=== PATIENT | male | born 1985 | race Caucasian/White ===

== ENCOUNTER 2016-03-16 12:11 | Emergency (ER) | payer BC ==
[2016-03-16 13:18] VITALS: BP 129/82
--- NOTE | 2016-03-16 14:05 | UC ---
Lower Extremity/Ankle HPI - HPI Summary HPI Summary: The patient comes in today for: 1. Right ankle pain Onset: This morning. Palliative/provocative: Walking, inversion Quality: Ache, sharp Region: right ankle Severity: sitting 7/10, walking 10/10 Time: Constant. Associated symptoms: Event: He went out drinking and woke up this morning with a painful, laterally swollen right ankle. He does not remember what he did to his ankle. Previous injury: He did not injury it before. Home Rx: None. 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 Endocrine History Of: Denies: Diabetes, Thyroid Disease, Hyperthyroidism, Hypothyroidism, Dyslipidemia Cardiovascular History Of: Denies: Cardiac Disorders, Hypertension, Pacemaker/ICD, Myocardial Infarction , Congestive Heart Failure, Atrial Fibrillation, Deep Vein Thrombosis, Bleeding Disorders Respiratory History Of: Reports: Asthma - request refill of his resque inhaler- has appt with PMD 05/05 Denies: COPD, Bronchitis, Pneumonia, Pulmonary Embolism GI/ History Of: Denies: Gastroesophageal Reflux, Ulcer, Gastrointestinal Bleed, Gall Bladder Disease, Kidney Stones, Diverticulitis, Renal Disease, Urosepsis Neurological History Of: Denies: TIA, CVA, Dementia, Seizures, Migraine Psychological History Of: Denies: Anxiety, Depression, Bipolar Disorder, Schizophrenia, Post Traumatic Stress Disorder Cancer History Of: Denies: Lung Cancer, Colorectal Cancer, Breast Cancer, Prostate Cancer, Cervical Cancer Other History Of: Negative For: HIV, Hepatitis B, Hepatitis C, Anticoagulant Therapy - Surgical History Surgical History: None - Family History Known Family History: Positive: Cardiac Disease, Hypertension - Social History Occupation: Unemployed Alcohol Use: Weekly Alcohol Amount: a few beers daily Substance Use Type: None Smoking Status (MU): Never Smoked Tobacco Review of Systems Constitutional: Negative Skin: Negative Eyes: Negative ENT: Negative Respiratory: Negative Cardiovascular: Negative Gastrointestinal: Negative Genitourinary: Negative All Other Systems Reviewed And Are Negative: Yes Physical Exam Triage Information Reviewed: Yes Appearance: Well-Appearing, No Pain Distress, Well-Nourished Vital Signs: Initial Vital Signs Temp 98.6 F 03/16/16 13:13 Pulse 77 03/16/16 13:13 Resp 16 03/16/16 13:13 BP 129/82 03/16/16 13:13 Pulse Ox 100 03/16/16 13:13 Vital Signs Reviewed: Yes Eyes: Positive: Conjunctiva Clear. Negative: Discharge ENT: Positive: Hearing grossly normal. Negative: Pharyngeal erythema, Nasal congestion, Nasal drainage, TM bulging, TM dull, TM red, Tonsillar swelling, Tonsillar exudate Dental: Negative: Gross Decay/Caries @, Dental Fracture @ Neck: Positive: Supple, Nontender, No Lymphadenopathy. Negative: Nuchal Rigidity Respiratory: Positive: Chest non-tender, Lungs clear, No respiratory distress, No accessory muscle use. Negative: Crackles, Wheezing Cardiovascular: Positive: RRR, No Murmur Abdomen Description: Positive: Nontender, No Organomegaly, Soft. Negative: Distended, Guarding, Peritoneal Signs Musculoskeletal: Positive: Other: - Right ankle: There is swelling around the lateral malleolus on the right. There is tenderness at that area. There is decreased range of motion. Dove test is normal and there is no depression along the Achilles tendon with slight dorsi-flexion Neurological: Positive: Alert, Muscle Tone Normal Psychological: Positive: Age Appropriate Behavior, Consolable Skin: Negative: rashes, breakdown Diagnostics - Laboratory Diagnostic Studies Completed/Ordered: Radiologist read: No fracture or dislocation, but positive soft tissue swelling. - Radiology No standard instances Xray Interpretation: Positive (See Comments) Lower Extremity Course/Dx - Differential Dx/Diagnosis Differential Diagnosis/HQI/PQRI: Cellulitis, Gout, Sprain Provider Diagnoses: right ankle sprain. Discharge - Discharge Plan Condition: Stable Disposition: HOME Patient Education Materials: RICE Therapy (ED), Ankle Sprain (ED) Referrals: Cristine Bishop [Primary Care Provider] - 1 Week (Please see your primary care provider in about a week to see how well you are doing. If you get worse, please be seen sooner.)
--- NOTE | 2016-03-16 14:27 | RAD ---
Indication: Right ankle injury. 3 views of the right ankle demonstrates no fracture or dislocation. Soft tissue swelling is noted laterally. IMPRESSION: No definite fracture is identified with soft tissue swelling. Oblique
== END 2016-03-16 14:48 | disposition home or self-care (01) ==
LOC: UCCORT 12:11
DX: S93.401A Sprain of unspecified ligament of right ankle, initial encounter (principal); X58.XXXA Exposure to other specified factors, initial encounter; Y93.9 Activity, unspecified; Y92.9 Unspecified place or not applicable; Y99.9 Unspecified external cause status; Z88.0 Allergy status to penicillin
CPT/HCPCS: 99213; G0463

== ENCOUNTER 2017-02-07 09:25 | Emergency (ER) | payer BC ==
--- NOTE | 2017-02-07 10:05 | UC ---
General HPI - HPI Summary HPI Summary: 32 yo gentleman c/o last 1-2 weeks cough, congestion. Today + scratchy throat. Works outside a lot, reports that he periodically wheezes, requests refill of inhaler. No recent fever / chills. No sob but chest a little tight. No GI issues reported. No rash. Also c/o "cold sores" to upper lip. Had a sore that closed yesterday but this am, a new sore opened up. 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 Typically takes valcyclovir (500mg daily via 1000mg tab script with tablets broken in 02/21), but script ran out; and has not been able to f/u with PCP. Sores are oral. Has used otc cold sore topical tx including lysine. - History of Current Complaint Chief Complaint: UCRespiratory Stated Complaint: COUGH,ST,COLD SORE Time Seen by Provider: 02/07/17 09:39 Hx Obtained From: Patient - Allergy/Home Medications Allergies/Adverse Reactions: Allergies Allergy/AdvReac Type Severity Reaction Status Date / Time Penicillins Allergy Unknown Verified 02/07/17 09:35 Reaction Details Home Medications: Home Medications Pseudoephedrine TAB* [Sudafed TAB*] 30 mg PO Q6H PRN 02/07/17 [History Confirmed 02/07/17] PMH/Surg Hx/FS Hx/Imm Hx Previously Healthy: Yes Other History Of: Negative For: HIV, Hepatitis B, Hepatitis C, Anticoagulant Therapy - Surgical History Surgical History: None - Family History Known Family History: Positive: Cardiac Disease, Hypertension - Social History Alcohol Use: Occasionally Alcohol Amount: a few beers daily Substance Use Type: None Smoking Status (MU): Never Smoked Tobacco Review of Systems Constitutional: Fatigue Skin: Other - see hpi Eyes: Negative ENT: Sore Throat, Nasal Discharge, Sinus Congestion Respiratory: Cough Cardiovascular: Negative Gastrointestinal: Negative Genitourinary: Negative Motor: Negative Neurovascular: Negative Musculoskeletal: Negative Neurological: Negative Psychological: Negative Is Patient Immunocompromised?: No All Other Systems Reviewed And Are Negative: Yes Physical Exam Triage Information Reviewed: Yes Appearance: Well-Nourished - sitting up, conversing easily and appropriately Vital Signs: Initial Vital Signs Temp 97.8 F 02/07/17 09:36 Pulse 74 02/07/17 09:36 Resp 16 02/07/17 09:36 BP 141/84 02/07/17 09:36 Pulse Ox 99 02/07/17 09:36 Vital Signs Reviewed: Yes Eye Exam: Normal ENT: Positive: Pharyngeal erythema - no sores, uvula midline. Top of roof a little red, no sores. Tongue grossly normal., Nasal congestion, TM dull - TMs dull au, Other - upper lip with sore, c/w HSV -type. Neck: Positive: Supple, Nontender, No Lymphadenopathy Respiratory Exam: Normal Respiratory: Positive: Chest non-tender, Lungs clear, Normal breath sounds, No respiratory distress, No accessory muscle use Cardiovascular Exam: Normal Cardiovascular: Positive: RRR, No Murmur, Pulses Normal, Brisk Capillary Refill Abdominal Exam: Normal Abdomen Description: Positive: Nontender Musculoskeletal Exam: Normal - moves all 4 ext's Neurological Exam: Normal - grossly nonfocal Psychological Exam: Normal - conversing easily and appropriately Skin Exam: Normal - see ent Course/Dx - Course Course Of Treatment: Reviewed s/sx with pt. Considered strep, but doubt. He will f/u accordingly if s/sx worsen. Rx for azithromycin, albuterol. Refill for valcyclovir. Declines work note. Questions as posed answered to the best of my ability. - Differential Dx - Multi-Symptom Provider Diagnoses: HSV cold sore. URI with bronchitis / mild pharyngitis Discharge - Discharge Plan Condition: Stable Disposition: HOME Referrals: Cristine Bishop [Primary Care Provider] -
[2017-02-07 10:14] VITALS: BP 141/84
== END 2017-02-07 10:22 | disposition home or self-care (01) ==
LOC: UCCORT 09:25
DX: B00.1 Herpesviral vesicular dermatitis (principal); J06.9 Acute upper respiratory infection, unspecified; J40 Bronchitis, not specified as acute or chronic; J02.9 Acute pharyngitis, unspecified
CPT/HCPCS: 99212; G0463

== ENCOUNTER 2018-01-06 12:18 | Emergency (ER) | payer BC ==
[2018-01-06 12:39] VITALS: BP 142/80
--- NOTE | 2018-01-06 12:40 | UC ---
UC General HPI - HPI Summary HPI Summary: 1. SHARP PAIN IN R LOW BACK X 2 DAYS WHICH HE AWOKE WITH. NO ACUTE INJURY. HX SPINAL FX IN PAST BUT NO PAIN IN SPINE. PAIN WORSE WHEN SITS UPRIGHT AND RELIEF WITH LYING BACK. NO FEVER, ABDOMINAL PAIN, SADDLE ANESTHESIA, BOWEL/BLADDER DYSFUNCTION OR NUMB/WEAK EXTREMITIES. SELF TX WITH TYLENOL AND NO RELIEF. 2. 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 STATES HX OF EPISODIC PAINS IN L TESTICLE WHICH A UROLOGIST ATTRIBUTED TO THE VEINS. OVER THE PAST MONTH, PT REPORTS HAVING WORSENING PAIN IN HIS L TESTICLE WHICH HE ATTRIBUTED TO THE VARICOSE VEINS. PAIN SEEMS CONSTANT X 1 MONTH. NO HX OF INJURY OR SWELLING. NO URETHRAL BURNING OR DISCHARGE. 3. OCCASIONAL SORENESS TO ARM PITS-NONE NOW. STATES I DON'T GO TO [facility]CT[facility] SO FIGURED HE WOULD MENTION IT HERE. NO SWELLING OR RASH. - History of Current Complaint Stated Complaint: LOWER RIGHT BACK PAIN Time Seen by Provider: 01/06/18 12:32 Hx Obtained From: Patient Associated Signs & Symptoms: Negative: Abdominal Pain, Fever - Allergy/Home Medications Allergies/Adverse Reactions: Allergies Allergy/AdvReac Type Severity Reaction Status Date / Time Penicillins Allergy Unknown Verified 01/06/18 12:31 Reaction Details Home Medications: Home Medications Acetaminophen [Acetaminophen Extra Strength] 1,000 mg PO Q6H PRN 01/06/18 [ History Confirmed 01/06/18] PMH/Surg Hx/FS Hx/Imm Hx - Additional Past Medical History Additional PMH: FX SPINE. L "TESTICLE VARICOSE VEINS" Other History Of: Negative For: HIV, Hepatitis B, Hepatitis C, Anticoagulant Therapy - Surgical History Surgical History: None - Family History Known Family History: Positive: Cardiac Disease, Hypertension - Social History Occupation: Unemployed - [employer] Alcohol Use: Weekly Alcohol Amount: a few beers daily Substance Use Type: None Smoking Status (MU): Never Smoked Tobacco - Immunization History Vaccination Up to Date: Yes Review of Systems All Other Systems Reviewed And Are Negative: Yes Constitutional: Positive: Negative Skin: Positive: Negative Eyes: Positive: Negative ENT: Positive: Negative Respiratory: Positive: Negative Cardiovascular: Positive: Negative Gastrointestinal: Positive: Negative Genitourinary: Negative: Dysuria, Hematuria, Frequency, Urgency, Vaginal/Penile Burning, Vaginal/Penile Itching, Vaginal/Penile Discharge, Vaginal/Penile Pain Motor: Positive: Negative Neurovascular: Positive: Negative Musculoskeletal: Positive: Other: - R LOW BACK PAIN Neurological: Positive: Negative Psychological: Positive: Negative Is Patient Immunocompromised?: No Physical Exam Triage Information Reviewed: Yes Appearance: Well-Appearing Vital Signs Reviewed: Yes Eyes: Positive: Conjunctiva Clear ENT: Positive: Pharynx normal, TMs normal. Negative: Nasal congestion, Nasal drainage Neck: Positive: Supple, Nontender, No Lymphadenopathy, Other: - C-SPINE NON TENDER Respiratory: Positive: Lungs clear, Normal breath sounds Cardiovascular: Positive: RRR, No Murmur Abdomen Description: Positive: Nontender, No Organomegaly, Soft, Other: - NO INGUINAL ADENOPATHY. Negative: CVA Tenderness (R), CVA Tenderness (L), Distended, Guarding Male Genital Exam: Positive: Other - NO INGUINAL ADENOPATHY. INGUINAL CANALS PATENT. CREAMASTERIC REFLEXES INTACT X2. TESTICLES DOWN. R TESTICLE/SCROTUM WITH NO SWELLING OR TENDERNESS. L TESTICLE VERY TENDER IS THE SPERMATIC CORD. ALSO, EXTENSIVE VARICOSE VEINS ON LEFT WHICH ARE TENDER BUT NOT SEVERE THE TESTICLE. Musculoskeletal: Positive: Other: - BACK: NO GROSS DEFORMITY, SWELLING OR DISCOLORTION AND SPINE IS NON TENDER. R PARASPINAL MM IN LUMBAR REGION ARE TENDER AND PAINFUL WITH ACTIVE ROM WHICH IS LIMITED INLUMBAR REGION BY PAIN. 5/ 5 STRENGTH, 2+ REFLEXES AND SENSATION INTACT X4. NO SADDLE ANETHESIA. Neurological: Positive: Alert Psychological: Positive: Age Appropriate Behavior Skin Exam: Normal, Other - AXILLA HAVE NO SWELLING, ERYTHEMA , RASH ADENOPATHY OR TENDERNESS. NO EPITROCLEAR ADENOPATHY. bue HAVE FULL ROM. Skin: Negative: Rashes Diagnostics - Laboratory Diagnostic Studies Completed/Ordered: U/A=PROTEIN, LEUKOCYTES AND NITRITES. A CULTURE IS PENDING. Course/Dx - Course Course Of Treatment: 1. BACK IS C/W MUSCULOSKELETAL PAIN. GIRLFRIEND DRIVING SO TX WITH MOTRIN AND FLEXERIL HERE. NO CONCERN FOR ACUTE ABDOMEN OF CAUDA EQUINA. DO NOT FEEL PYELONEPHRITIS. 2. L TESTICULAR PAIN IS CONCERNING FOR OTHER PATHOLOGY NOT JUST VARICOSE VEINS, INCLUDING ORCHITIS, EPIDIDYMITIS AND LESS LIKELY INTERMITTENT TORSION. HE AGREES TO GO DIRECTLY TO ER FOR EVALUATION. 3. AXILLARY PAIN IS VAGUE AND NO PAIN AT TIME OF EXAM. I THINK BP ILLNESS/VISIT RELATED. PT GIRLFRIEND IS DRIVING HIM DIRECTLY TO THE ER. [facility] ER CALLED PRIOR TO PT DISCHARGE FROM HERE. 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 I ADVIED OF PT'S 3 COMPLAINTS BUT EMERGENT ISSUE IS THE TESTICLE PAIN. I ADVISED OF U/A RESULT WHICH WAS SENT WITH PT WELL AND TX HERE WITH MOTRIN AND FLEXERIL FOR THE BACK PAIN. I ADVISE TESTICLE PAIN NOT C/W VARICOSE VEIN ISSUE AND NEEDS U/S EMERGENTLY. - Differential Dx - Multi-Symptom Provider Diagnoses: L TESTICLE PAIN. R LOW BACK PAIN. AXILLARY PAIN Discharge - Sign-Out/Discharge Documenting (check all that apply): Patient Departure All imaging exams completed and their final reports reviewed: No Studies - Discharge Plan Condition: Stable Disposition: TRANS HIGHER LVL OF CARE FAC Referrals: No Primary Care Phys,NOPCP [Primary Care Provider] - Additional Instructions: LEAVE HERE AND HAVE YOUR GIRLFRIEND DRIVE YOU TO THE [facility] [place] [facility] DISCUSSED. DIAGNOSIS: L TESTICLE PAIN. R LOW BACK PAIN. AXILLARY PAIN - Billing Disposition and Condition Condition: STABLE Disposition: Trans Higher Lvl of Care Fac
[2018-01-06] MEDS ORDERED: Ibuprofen ADULT LIQ* 600 MG/30 ML UDC PO ONE (13:12)
[2018-01-06] MEDS ORDERED: Cyclobenzaprine TAB* 10 MG PO ONE (13:13)
== END 2018-01-06 13:25 | disposition short-term general hospital (02) ==
LOC: UCCORT 12:18
DX: M54.5 Low back pain (principal); N50.812 Left testicular pain; M79.629 Pain in unspecified upper arm; I86.1 Scrotal varices; Z88.0 Allergy status to penicillin
CPT/HCPCS: 81003; 87077; 87086; 87186; 99212; A9270-GY; G0463

== ENCOUNTER 2018-06-08 07:46 | Emergency (ER) | payer BC ==
[2018-06-08 08:18] VITALS: BP 135/78
--- NOTE | 2018-06-08 09:04 | UC ---
Eye Complaint HPI - HPI Summary HPI Summary: Pleasant 33 yo gentleman presents c/o sore, redness, swelling under R eye, just over cheekbone. Woke up with the sore, did not have it last night nor any other symptoms. No recent fever / chills. No cold sores. No cough / sinus congestion. No GI issues. Has had shingles elsewhere in the past, and wanted to be checked out. - History of Current Complaint Chief Complaint: UCSkin Stated Complaint: RIGHT EYE Time Seen by Provider: 06/08/18 09:02 Hx Obtained From: Patient Pain Intensity: 0 - Allergies/Home Medications Allergies/Adverse Reactions: Allergies Allergy/AdvReac Type Severity Reaction Status Date / Time No Known Allergies Allergy Verified 06/08/18 08:19 PMH/Surg Hx/FS Hx/Imm Hx Previously Healthy: Yes - see hpi Other History Of: Negative For: HIV, Hepatitis B, Hepatitis C, Anticoagulant Therapy - Surgical History Surgical History: None - Family History Known Family History: Positive: Cardiac Disease, Hypertension - Social History Alcohol Use: Weekly Alcohol Amount: a few beers daily Substance Use Type: None Smoking Status (MU): Never Smoked Tobacco Amount Used/How Often: daily - Immunization History Vaccination Up to Date: Yes Review of Systems All Other Systems Reviewed And Are Negative: Yes Constitutional: Positive: Negative Skin: Positive: Rash - see hpi Eyes: Positive: Other - see hpi ENT: Positive: Negative Respiratory: Positive: Negative Cardiovascular: Positive: Negative Gastrointestinal: Positive: Negative Genitourinary: Positive: Negative Motor: Positive: Negative Musculoskeletal: Positive: Arthralgia Neurological: Positive: Negative Psychological: Positive: Negative Is Patient Immunocompromised?: No Physical Exam Triage Information Reviewed: Yes Appearance: Well-Appearing, Well-Nourished Vital Signs: Initial Vital Signs Temp 97.6 F 06/08/18 08:13 Pulse 70 06/08/18 08:13 Resp 16 06/08/18 08:13 BP 135/78 06/08/18 08:13 Pulse Ox 98 06/08/18 08:13 Vital Signs Reviewed: Yes Eye Exam: Normal Eyes: Positive: Conjunctiva Clear ENT Exam: Other - R upper maxillary mild redness, and puffiness over the cheekbone. Lesion approx 1cm irreg diam. Partial thickness appearance. Tender to pressure / light touch. No purulence. Dry serous drainage, small amount. ENT: Positive: Pharyngeal erythema, TM dull Neck exam: Normal Neck: Positive: Supple, Nontender, No Lymphadenopathy Respiratory Exam: Normal Cardiovascular Exam: Normal Abdominal Exam: Normal Musculoskeletal Exam: Normal Neurological Exam: Normal Psychological Exam: Normal Skin Exam: Other - see above, o/w neg Eye Complaint Course/Dx - Course Course Of Treatment: Etiology of wound is more c/w with an insect bite; however, can not exclude early manifistation of shingles. Does not have a pcp. Given close local to the eye, important to start valcyclovir. D/w pt. Refer to optho for f/u check. Seek medical attention worse or new problems. Questions answered to the best of my ability. Viral swab sent. - Differential Dx/Diagnosis Provider Diagnosis: Wound, open, face, Shingles Discharge - Sign-Out/Discharge Documenting (check all that apply): Patient Departure All imaging exams completed and their final reports reviewed: No Studies - Discharge Plan Condition: Stable Disposition: HOME Prescriptions: Erythromycin OPHTH.OINT* [Ilotycin OPHTH.OINT*] 1 applic RIGHT EYE TID 5 Days # 1 tube ValACYclovir (*) [Valtrex 1 GM(*)] 1 gm PO TID #30 tab Patient Education Materials: Shingles (ED), Acute Rash (ED) Referrals: No Primary Care Phys,NOPCP [Primary Care Provider] - [facility] [place] [facility] [Outside] Ej Horn MD [Medical Doctor] - Additional Instructions: Important to follow up with a primary care physician as soon as you are able. Seek medical attention for worse or new problems. Eye doctor check recommended next week. - Billing Disposition and Condition Condition: STABLE Disposition: Home
[2018-06-09 17:16] LABS: HSV 1 PCR Positive (Negative); Herpes Source FACE
--- NOTE | 2018-06-10 07:20 | UC ---
- Progress Note Progress Note: HSV-1 PCR positive. Varicella-zoster PCR pending at this time Given the close proximity to I patient was started on Valtrex 1 g 3 times a day. RN to call the patient to advise of the results and keep the appointment with ophthalmology, referral was given for Dr. Best. Course/Dx - Diagnoses Provider Diagnoses: Wound, open, face, Shingles Discharge - Sign-Out/Discharge Documenting (check all that apply): Post-Discharge Follow Up All imaging exams completed and their final reports reviewed: No Studies - Discharge Plan Condition: Stable Disposition: HOME Prescriptions: Erythromycin OPHTH.OINT* [Ilotycin OPHTH.OINT*] 1 applic RIGHT EYE TID 5 Days # 1 tube ValACYclovir (*) [Valtrex 1 GM(*)] 1 gm PO TID #30 tab Patient Education Materials: Shingles (ED), Acute Rash (ED) Referrals: [facility] [place] [facility] [Outside] Ej Horn MD [Medical Doctor] - No Primary Care Phys,NOPCP [Primary Care Provider] - Additional Instructions: Important to follow up with a primary care physician as soon as you are able. Seek medical attention for worse or new problems. Eye doctor check recommended next week. - Billing Disposition and Condition Condition: STABLE Disposition: Home
[2018-06-10 19:44] LABS: Varicella Zoster Result Negative (Negative); Varicella Zoster Source FACE
--- NOTE | 2018-06-11 07:07 | UC ---
- Progress Note Progress Note: VZV neg No change denisha 06/11/18 Course/Dx - Diagnoses Provider Diagnoses: Wound, open, face, Shingles Discharge - Sign-Out/Discharge Documenting (check all that apply): Post-Discharge Follow Up All imaging exams completed and their final reports reviewed: No Studies - Discharge Plan Condition: Stable Disposition: HOME Prescriptions: Erythromycin OPHTH.OINT* [Ilotycin OPHTH.OINT*] 1 applic RIGHT EYE TID 5 Days # 1 tube ValACYclovir (*) [Valtrex 1 GM(*)] 1 gm PO TID #30 tab Patient Education Materials: Shingles (ED), Acute Rash (ED) Referrals: [facility] [place] [facility] [Outside] Ej Horn MD [Medical Doctor] - No Primary Care Phys,NOPCP [Primary Care Provider] - Additional Instructions: Important to follow up with a primary care physician as soon as you are able. Seek medical attention for worse or new problems. Eye doctor check recommended next week. - Billing Disposition and Condition Condition: STABLE Disposition: Home
== END 2018-06-08 09:30 | disposition home or self-care (01) ==
LOC: UCCORT 07:46
DX: S01.80XA Unspecified open wound of other part of head, initial encounter (principal); X58.XXXA Exposure to other specified factors, initial encounter; B02.9 Zoster without complications
CPT/HCPCS: 87529; 87798; 99212; G0463

== ENCOUNTER 2018-06-26 16:38 | Emergency (ER) | payer BC ==
[2018-06-26 17:48] VITALS: BP 160/86
[2018-06-26] MEDS ORDERED: Azithromycin TAB* 250 MG PO ONE (18:17)
[2018-06-26] MEDS ORDERED: cefTRIAXone VIAL(*) 250 MG VIAL IM ONE (18:17)
[2018-06-26] MEDS ORDERED: DOXYcycline CAP(*) 100 MG PO ONE (18:18)
--- NOTE | 2018-06-26 18:20 | ED ---
GI/ HPI - HPI Summary HPI Summary: 33 yr old male with the complaint of dysuria for five days, mild low back ache and also he has noticed some discharge on his underwear. He denies fever, chills. He had chlamydia ten years ago. no change in sex partner for two years. He states he had a UTI a couple months ago. Denies fever and chills. - History of Current Complaint Chief Complaint: [facility] Time Seen by Provider: 06/26/18 17:51 Stated Complaint: URINARY Pain Intensity: 0 - Allergy/Home Medications Allergies/Adverse Reactions: Allergies Allergy/AdvReac Type Severity Reaction Status Date / Time No Known Allergies Allergy Verified 06/26/18 17:44 PMH/Surg Hx/FS Hx/Imm Hx Endocrine/Hematology History: Denies: Hx Anticoagulant Therapy, Hx Diabetes, Hx Thyroid Disease Cardiovascular History: Denies: Hx Congestive Heart Failure, Hx Deep Vein Thrombosis, Hx Hypertension , Hx Myocardial Infarction, Hx Pacemaker/ICD Respiratory History: Reports: Hx Asthma Denies: Hx Chronic Obstructive Pulmonary Disease (COPD), Hx Lung Cancer, Hx Pneumonia, Hx Pulmonary Embolism GI History: Denies: Hx Gall Bladder Disease, Hx Gastrointestinal Bleed, Hx Ulcer, Hx Urosepsis History: Denies: Hx Kidney Stones, Hx Renal Disease Neurological History: Denies: Hx Dementia, Hx Migraine, Hx Seizures, Hx Transient Ischemic Attacks (TIA) Psychiatric History: Denies: Hx Anxiety, Hx Depression, Hx Schizophrenia, Hx Bipolar Disorder Infectious Disease History: Yes Infectious Disease History: Reports: Hx Shingles Denies: Traveled Outside the [place] in Last 30 Days - Family History Known Family History: Positive: Cardiac Disease, Hypertension - Social History Occupation: Employed Full-time Alcohol Use: Weekly Alcohol Amount: a few beers daily Substance Use Type: Reports: None Smoking Status (MU): Never Smoked Tobacco Amount Used/How Often: daily Review of Systems Constitutional: Negative Positive: dysuria, discharge All Other Systems Reviewed And Are Negative: Yes Physical Exam Triage Information Reviewed: Yes Vital Signs On Initial Exam: Initial Vitals Temp Pulse Resp BP Pulse Ox 98.6 F 95 16 160/86 99 06/26/18 17:45 06/26/18 17:45 06/26/18 17:45 06/26/18 17:45 06/26/18 17:45 Vital Signs Reviewed: Yes Appearance: Positive: Well-Appearing, No Pain Distress Skin: Positive: Warm, Skin Color Reflects Adequate Perfusion Head/Face: Positive: Normal Head/Face Inspection Eyes: Positive: EOMI, LENY ENT: Positive: Normal ENT inspection Neck: Positive: Nontender Respiratory/Lung Sounds: Positive: Clear to Auscultation, Breath Sounds Present Cardiovascular: Positive: RRR. Negative: Murmur Abdomen Description: Positive: Nontender. Negative: Distended Musculoskeletal: Positive: Strength/ROM Intact Neurological: Positive: Sensory/Motor Intact, Alert, Oriented to Person Place, Time, CN Intact II-III Psychiatric: Positive: Normal - [place] Coma Scale Best Eye Response: 4 - Spontaneous Best Motor Response: 6 - Obeys Commands Best Verbal Response: 5 - Oriented Coma Scale Total: 15 Diagnostics - Vital Signs Vital Signs Temp Pulse Resp BP Pulse Ox 06/26/18 17:45 98.6 F 95 16 160/86 99 - Laboratory Lab Results: Lab Results 06/26/18 Range/Units 18:02 POC Urine Color Yellow POC Urine Clarity Clear POC Urine pH 7.0 (5-9) POC Ur Specif Allison 1.015 (1.010-1.030) POC Urine Protein Negative (Negative) POC Ur Glucose (UA) Negative (Negative) POC Urine Ketones Negative (Negative) POC Urine Blood Negative (Negative) POC Urine Nitrite Negative (Negative) POC Urine Bilirubin Negative (Negative) POC Urine Urobilinogen 0.2 (Negative) POC U Leukocyte Esteras Negative (Negative) Lab Statement: Any lab studies that have been ordered have been reviewed, and results considered in the medical decision making process. GIGU Course/Dx - Course Course Of Treatment: 33 yr old with some dysuria. DC home will rx with rocephin and doxy to cover for possible STD. - Diagnoses Provider Diagnoses: Dysuria, Hypertension Discharge - Sign-Out/Discharge Documenting (check all that apply): Patient Departure All imaging exams completed and their final reports reviewed: No Studies - Discharge Plan Condition: Good Disposition: HOME Prescriptions: Doxycycline Monohydrate 100 mg PO BID #20 capsule Patient Education Materials: Dysuria (ED), Hypertension (ED) Referrals: No Primary Care Phys,NOPCP [Primary Care Provider] - Cailin Peterson MD [Medical Doctor] - 5 Days [facility] [place] [facility] [Outside] - 2 Days - Billing Disposition and Condition Condition: GOOD Disposition: Home
[2018-06-26] MEDS ORDERED: Lidocaine 1% MPF* 2 ML VIAL ONE (18:29)
[2018-06-28 13:04] LABS: Neisseria gonorrhoeae (GC) RNA Negative (Negative)
== END 2018-06-26 19:09 | disposition home or self-care (01) ==
LOC: UCCORT 16:38
DX: I10 Essential (primary) hypertension (principal); R30.0 Dysuria; M54.5 Low back pain; J45.909 Unspecified asthma, uncomplicated
CPT/HCPCS: 81003; 87491; 87591; 96372; 99212; A9270-GY; G0463; J0696

== ENCOUNTER 2019-04-17 07:13 | Emergency (ER) | payer BC ==
[2019-04-17 07:24] VITALS: BP 142/91
--- NOTE | 2019-04-17 07:43 | UC ---
Throat Pain/Nasal Ambrosio HPI - HPI Summary HPI Summary: 34-year-old male comes in with a chief complaint of 4 days of upper respiratory tract infection symptoms. Patient has rhinorrhea. He had blood in the rhinorrhea this morning. He has a sore throat that hurts worse when he swallows. He has tried [id number] medications are not helping with the symptoms he is rather getting worse. Does have a cough and is bringing up some sputum. Does have a history of asthma and that is not being made worse by the symptoms. - History of Current Complaint Chief Complaint: UCGeneralIllness Stated Complaint: SORE THROAT EAR PAIN Time Seen by Provider: 04/17/19 07:34 Pain Intensity: 0 - Allergies/Home Medications Allergies/Adverse Reactions: Allergies Allergy/AdvReac Type Severity Reaction Status Date / Time No Known Allergies Allergy Verified 04/17/19 07:24 Home Medications: Home Medications Albuterol HFA INHALER* [Ventolin HFA Inhaler*] 1 puff INH Q4H PRN #1 mdi [Rx Confirmed 04/17/19] ValACYclovir (*) [Valtrex 1 GM(*)] 1 gm PO TID #30 tab 06/08/18 [Rx Confirmed ] Amoxicillin PO (*) [Amoxicillin 875 MG (*)] 875 mg PO BID #20 tab 04/17/19 [Rx] PMH/Surg Hx/FS Hx/Imm Hx Previously Healthy: Yes Respiratory History: Asthma Other History Of: Negative For: HIV, Hepatitis B, Hepatitis C, Anticoagulant Therapy - Surgical History Surgical History: None - Family History Known Family History: Positive: Cardiac Disease, Hypertension - Social History Alcohol Use: Weekly Alcohol Amount: a few beers daily Substance Use Type: None Smoking Status (MU): Never Smoked Tobacco Amount Used/How Often: daily - Immunization History Vaccination Up to Date: Yes Review of Systems All Other Systems Reviewed And Are Negative: Yes Constitutional: Positive: Other - see hpi Skin: Positive: Negative Eyes: Positive: Negative ENT: Positive: Sore Throat, Ear Ache, Nasal Discharge, Sinus Congestion Respiratory: Positive: Cough Cardiovascular: Positive: Negative Gastrointestinal: Positive: Negative Motor: Positive: Negative Neurovascular: Positive: Negative Musculoskeletal: Positive: Negative Neurological/Mental Status: Positive: Negative Psychological: Positive: Negative Is Patient Immunocompromised?: No Physical Exam Triage Information Reviewed: Yes Appearance: No Pain Distress, Well-Nourished, Ill-Appearing - mild Vital Signs: Initial Vital Signs Temp 98.3 F 04/17/19 07:21 Pulse 90 04/17/19 07:21 Resp 18 04/17/19 07:21 BP 142/91 04/17/19 07:21 Pulse Ox 99 04/17/19 07:21 Vital Signs Reviewed: Yes Eye Exam: Normal Eyes: Positive: Conjunctiva Clear ENT: Positive: Pharyngeal erythema, Nasal congestion, Nasal drainage, TMs normal Neck: Positive: Supple Respiratory: Positive: Lungs clear, Normal breath sounds, No respiratory distress Cardiovascular: Positive: RRR Musculoskeletal: Positive: Strength Intact, ROM Intact Neurological: Positive: Alert, Muscle Tone Normal Psychological: Positive: Age Appropriate Behavior Skin Exam: Normal Throat Pain/Nasal Course/Dx - Course Course Of Treatment: DISCUSSED VIRAL VERSES BACTERIAL INFECTIONS AND THE ROLE OF ANTIBIOTICS. THE PATIENT PREFERS TO BE ON ANTIBIOTICS AT THIS TIME. - Differential Dx/Diagnosis Provider Diagnosis: Sinusitis Discharge ED - Sign-Out/Discharge Documenting (check all that apply): Patient Departure All imaging exams completed and their final reports reviewed: No Studies - Discharge Plan Condition: Stable Disposition: HOME Prescriptions: Amoxicillin PO (*) [Amoxicillin 875 MG (*)] 875 mg PO BID #20 tab Patient Education Materials: Sinusitis (ED) Referrals: Higinio Blankenship MD [Primary Care Provider] - Additional Instructions: FOLLOW UP WITH YOUR DOCTOR IF NOT COMPLETELY IMPROVED. GET REEVALUATED SOONER IF NOT IMPROVED OR WORSE OR ANY QUESTIONS OR CONCERNS. - Billing Disposition and Condition Condition: STABLE Disposition: Home
== END 2019-04-17 07:48 | disposition home or self-care (01) ==
LOC: UCCORT 07:13
DX: J32.9 Chronic sinusitis, unspecified (principal); J45.909 Unspecified asthma, uncomplicated; J02.9 Acute pharyngitis, unspecified; R05 Cough; Z79.899 Other long term (current) drug therapy
CPT/HCPCS: 87651; 99211; G0463